=== PATIENT | female | born 1945 | race Caucasian/White ===

== ENCOUNTER 2016-11-22 12:46 | Emergency (ER) | payer MEDICARE, BC ==
[~2016-11-22 12:46] MED LIST: CARAFATE1 GM PO; CIPRO500 MG PO; CLONAZEPAM0.5 MG PO; DAILY VITAMIN1 EACH PO; DOXYCYCLINE HY100 MG PO; DULERA INH; LASIX20 MG PO; MUCINEX600 MG PO; NAPROSYN250 MG PO; PREDNISONE5 MG PO; PRILOSEC20 M1 PO; SYNTHROID100 MCG PO; TRAMADOL HCL50 MG PO; TYLENOL PM EX-1 EACH PO; VENTOLIN HFA8 GM INH; VERAMYST10 GM; [UNRECOGNIZED DRUG - OTHER] INH
== END 2016-11-22 15:29 | disposition home or self-care (01) ==
LOC: ER 12:46
DX: J44.1 Chronic obstructive pulmonary disease with (acute) exacerbation (principal); R11.0 Nausea; R19.7 Diarrhea, unspecified; J45.909 Unspecified asthma, uncomplicated; F41.9 Anxiety disorder, unspecified; Z90.711 Acquired absence of uterus with remaining cervical stump; Z87.891 Personal history of nicotine dependence; Z96.642 Presence of left artificial hip joint; Z96.651 Presence of right artificial knee joint; Z90.49 Acquired absence of other specified parts of digestive tract; Z79.82 Long term (current) use of aspirin; Z79.899 Other long term (current) drug therapy; Z88.5 Allergy status to narcotic agent
CPT/HCPCS: 36415